=== PATIENT | female | born 1995 | race Caucasian/White ===

== ENCOUNTER 2018-04-08 19:06 | Emergency (ER) | payer BC, OTHER ==
[2018-04-08] MEDS ORDERED: NS 1,000 ML IV ONE ×2 (19:28)
[2018-04-08] MEDS ORDERED: KETOROLAC 30 MG/1 ML SDV IVP ONE (19:34)
[2018-04-08] MEDS ORDERED: ACETAMINOPHEN 500 MG TAB PO ONE (19:34)
[2018-04-08 19:39] LABS: PLATELET COUNT 269 10^3/uL (150-400)
--- NOTE | 2018-04-08 19:39 | EDPHY ---
H & P Time Seen by Provider: 04/08/18 19:26 HPI/ROS: HPI Left flank pain. 22-year-old female by private vehicle with her mother. This patient complains of 3 days of ongoing and worsening left flank pain with radiation to the left mid abdomen. She describes the pain is aching and similar to the pain she has had in the past with kidney infections. She denies any urinary complaints. She reports feeling feverish today. Last menstrual finished 2 days ago. Normal bowel movement this morning. No bloody stool or melenic stool. No diarrhea. No change in diet. She has not had any nausea or vomiting associated with her pain. No history of abdominal surgeries. No other complaints. ROS: Constitutional: As above, no chills. No weakness. Eyes: No discharge. No changes in vision. ENT: No sore throat. No nasal congestion or rhinorrhea. Respiratory: No cough. No shortness of breath. Cardiac: No chest pain, no palpitations. Gastrointestinal: As above, no vomiting, no diarrhea. Genitourinary: No hematuria. No dysuria or increased frequency with urination. Musculoskeletal: As above. No neck pain. No myalgias or arthralgias. Skin: No rashes. Neurological: No headache. No focal weakness or altered sensation. Past medical history: As above. Ankle surgery. Social history: Here with her mother. Nonsmoker. No alcohol. Physical Exam: General Appearance: Alert, no distress. This patient is responding to questions appropriately and in full sentences. This patient appears well- hydrated and well-nourished. Eyes: Pupils equal and round no pallor or injection. No lid edema, erythema or injection. Respiratory: There are no retractions, lungs are clear to auscultation with good air movement bilaterally. Cardiovascular: Regular rate and rhythm. No murmur. Gastrointestinal: Abdomen is soft with vague and mild left mid lateral tenderness on palpation, no masses, bowel sounds normal. No focal tenderness at McBurney's point. No adnexal tenderness bilaterally. No Ontiveros sign. Neurological: Motor sensory function is grossly intact. Cranial nerves are normal. Gait is normal. Skin: Warm and dry, no rashes. Musculoskeletal: Mild left-sided CVA tenderness on palpation. No right-sided CVA tenderness on palpation. Extremities are symmetrical. All joints range without pain or impingement. Psychiatric: No agitation. No depression. Database: EKG: Imaging: Procedures: Emergency department course: Vital signs reviewed. She is borderline febrile at 37.8. Mildly tachycardic. Vital signs otherwise normal. IV was placed. She was placed on a monitor. She was started on IV normal saline with 1-2 L to be given over the next 1-2 hours. She was given 1 g of Tylenol orally. For pain she was given 30 mg of IV Toradol. No contraindications to NSAIDs. 8:40 p.m., urinalysis obtained. Results indicated infection. Patient's presentation is consistent with a pyelonephritis. Medication allergies reviewed. She will be given IV Rocephin in the emergency department. 9:15 p.m., patient re-evaluated. She has received her Rocephin. Her vital signs were reviewed and are normal. She appears well. She feels comfortable going home with her mother. The plan will be to prescribe her cefdinir 300 mg twice daily for the next 10 days for outpatient treatment. She and her mother feel comfortable with this plan. Follow-up and return to emergency department precautions were reviewed with the 2 of them thoroughly. All of their questions were answered. The patient was discharged home in good condition with her mother. Differential Diagnosis: The differential diagnosis on this patient includes but is not limited to pyelonephritis, colitis, diverticulitis. Appendicitis, volvulus, ectopic , ovarian torsion unlikely. This represents a partial list of diagnoses considered. These considerations are based on history, physical exam , past history, reassessment and diagnostic testing. Smoking Status: Never smoked Constitutional: Initial Vital Signs Temperature (C) 37.8 C 04/08/18 19:18 Heart Rate 103 H 04/08/18 19:18 Respiratory Rate 16 04/08/18 19:18 Blood Pressure 129/81 H 04/08/18 19:18 O2 Sat (%) 98 04/08/18 19:18 O2 Delivery Mode Room Air Allergies/Adverse Reactions: No Known Allergies Allergy (Verified 04/08/18 19:17) Home Medications: Medication Instructions Recorded Control 04/08/18 Cefdinir [Omnicef (*)] 300 mg PO BID #20 cap 04/08/18 Medical Decision Making - Data Points Laboratory Results: Laboratory Results 04/08/18 19:30 04/08/18 19:30 Medications Given: Discontinued Medications Acetaminophen (Tylenol) 1,000 mg PO EDNOW ONE Stop: 04/08/18 19:35 Last Admin: 04/08/18 19:38 Dose: Not Given Sodium Chloride (Ns) 1,000 mls @ 0 mls/hr IV EDNOW ONE; Wide Open PRN Reason: Protocol Stop: 04/08/18 19:29 Last Admin: 04/08/18 19:37 Dose: 1,000 mls Sodium Chloride (Ns) 1,000 mls @ 0 mls/hr IV EDNOW ONE; Wide Open PRN Reason: Protocol Stop: 04/08/18 19:29 Last Admin: 04/08/18 19:36 Dose: 1,000 mls Ceftriaxone Sodium 2 gm/ (Sterile Water) 20 mls @ 300 mls/hr IV EDNOW ONE PRN Reason: Protocol Stop: 04/08/18 20:45 Last Admin: 04/08/18 20:58 Dose: 20 mls Ketorolac Tromethamine (Toradol) 30 mg IVP EDNOW ONE Stop: 04/08/18 19:35 Last Admin: 04/08/18 19:37 Dose: 30 mg Departure - Departure Disposition: Home, Routine, Self-Care Clinical Impression: Acute pyelonephritis, Left flank pain Condition: Good Instructions: Kidney Infection (ED) Additional Instructions: Read and follow provided instructions. Follow-up with your primary care physician on Tuesday of next week for re- evaluation. Take antibiotic as prescribed through entire course of treatment. You can start taking ibuprofen tomorrow morning. Ibuprofen dosin mg every 6 hours with meals for the next 3 days only. Take only as needed for pain. Keep well hydrated. Return to the emergency department for worsening symptoms, worsening pain, vomiting, fever or other serious concerns. Referrals: NONE *PRIMARY CARE P,. [Primary Care Provider] - As per Instructions Prescriptions: Cefdinir [Omnicef (*)] 300 mg PO BID #20 cap
[2018-04-08] MEDS ORDERED: cefTRIAXone 2 GM in STERILE WATER INJ 20 ML IV ONE (20:42)
[2018-04-08 21:22] VITALS: BP 112/65
== END 2018-04-08 21:22 | disposition home or self-care (01) ==
DX: N10 Acute pyelonephritis (principal); E86.9 Volume depletion, unspecified
CPT/HCPCS: 96374; J0696; J1885